=== PATIENT | female | born 2000 | race Caucasian/White ===

== ENCOUNTER 2025-05-06 12:05 | Emergency (ER) | payer MEDICAID ==
[~2025-05-06] VITALS: Ht 157.5 cm; Wt 55.0 kg
[2025-05-06 12:10] VITALS: TEMP 36.8; O2SAT 98
[2025-05-06 17:07] VITALS: BP 99/61; PULSE 64; RESP 14; O2SAT 100
== END 2025-05-06 16:58 | disposition home or self-care (01) ==
LOC: ER 12:05
DX: J34.89 Other specified disorders of nose and nasal sinuses (principal)
CPT/HCPCS: 99282